=== PATIENT | male | born 1990 | race Caucasian/White ===

== ENCOUNTER 2016-09-30 22:47 | Emergency (ER) | payer OTHER ==
[~2016-09-30] VITALS: Ht 177.8 cm; Wt 70.0 kg
[~2016-09-30 22:47] MED LIST: BACL10TA PO; GABA600T PO
[2016-09-30 22:56] VITALS: BP 152/76; PULSE 96; RESP 16; TEMP 98.2; O2SAT 99
[2016-10-01 00:46] LABS: AUTOMATED NEUTROPHIL # 9.9 TH/MM3 (1.8-7.7); BASOPHIL % 0.3 % (0.0-2.0); EOSINOPHIL % 0.1 % (0.0-4.0); HEMATOCRIT 45.9 % (39.0-51.0); HEMO FLAGS DIFF FINAL; LYMPH % 8.4 % (9.0-44.0); MEAN CELL VOLUME 84.1 FL (80.0-100.0); MEAN CORPUSCULAR HEMOGLOBIN 29.9 PG (27.0-34.0); MEAN CORPUSCULAR HGB CONC 35.5 % (32.0-36.0); MONO % 4.4 % (0.0-8.0); NEUT % 86.8 % (16.0-70.0); PLATELET COUNT 198 TH/MM3 (150-450); RED BLOOD COUNT 5.46 MIL/MM3 (4.50-5.90); RED CELL DISTRIBUTION WIDTH 12.9 % (11.6-17.2); WHITE BLOOD COUNT 11.4 TH/MM3 (4.0-11.0)
[2016-10-01 00:59] LABS: AMPHETAMINE, URINE NEG (NEG); BARBITURATES, URINE NEG (NEG); COCAINE, URINE NEG (NEG)
[2016-10-01 01:05] LABS: ANION GAP 7 MEQ/L (5-15)
[2016-10-01 01:08] LABS: ALKALINE PHOSPHATASE 96 U/L (45-117); ALT (GPT) 43 U/L (12-78); AST (GOT) 17 U/L (15-37); BLOOD UREA NITROGEN 12 MG/DL (7-18); CHLORIDE 104 MEQ/L (98-107); GLOMERULAR FILTRATION RATE 81 ML/MIN (>89); POTASSIUM 3.6 MEQ/L (3.5-5.1); SODIUM (NA) 139 MEQ/L (136-145); TOTAL BILIRUBIN ADULT 1.9 MG/DL (0.2-1.0)
--- NOTE | 2016-10-01 01:18 | PD ---
HPI Chief Complaint: Psychiatric Symptoms Time Seen by Provider: 23:16 Travel History International Travel<30 days: No Contact w/Intl Traveler<30days: No Traveled to known affect area: No History of Present Illness HPI 26yo M with no PMH presents to the ED under Monsalve Act because he ingested LSD. As per monsalve act paper, his mothers stated he had suicidal ideation. Pt is denying everything. Denies any fever, chest pain, sob, n/v, abdominal pain, or fall. Pt is answering questions but obviously under the influence of drugs. PFSH Past Medical History Hx Anticoagulant Therapy: No ADHD: Yes Blood Disorders: Yes Bipolar Disorder: Yes Anxiety: Yes Depression: Yes Cancer: No Cardiovascular Problems: No Chemotherapy: No Cerebrovascular Accident: No Diabetes: No Diminished Hearing: No GERD: Yes Glaucoma: No Genitourinary: Yes (CHRONIC KIDNEY STONES) Hepatitis: No Hiatal Hernia: Yes Hypertension: No Kidney Stones: Yes Medical other: Yes (TRAUMATIC BRAIN INJURY 2004) Neurologic: Yes (TRAMATIC BRAIN INJURY AND INSOMNIA) Psychiatric: Yes Respiratory: No Immunizations Current: Yes Thyroid Disease: No Past Surgical History Abdominal Surgery: No Cardiac Surgery: No Ear Surgery: No Endocrine Surgery: No Eye Surgery: No Genitourinary Surgery: Yes (R KIDNEY LITHOTRIPSY) Gynecologic Surgery: No Hysterectomy: No Neurologic Surgery: No Oral Surgery: No Pacemaker: No Thoracic Surgery: No Other Surgery: Yes (double hernia) Social History Alcohol Use: Yes Tobacco Use: Yes Substance Use: Yes (LSD) Allergies-Medications (Allergen,Severity, Reaction): Coded Allergies: Latex (Verified Allergy, Mild, Itching, 09/30/16) Toradol (Verified Allergy, Unknown, 09/30/16) Uncoded Allergies: IV tape (Adverse Reaction, Severe, urticaria and redness, 01/09/10) Reported Meds & Prescriptions Reported Meds & Active Scripts Active No Active Prescriptions or Reported Medications Review of Systems Except as stated in HPI: all other systems reviewed are Neg Physical Exam Narrative GENERAL: 26yo M not in distress. SKIN: Focused skin assessment warm/dry. HEAD: Atraumatic. Normocephalic. EYES: Pupils equal and round. No scleral icterus. No injection or drainage. ENT: No nasal bleeding or discharge. Mucous membranes pink and moist. NECK: Trachea midline. No JVD. CARDIOVASCULAR: Regular rate and rhythm. No murmur appreciated. RESPIRATORY: No accessory muscle use. Clear to auscultation. Breath sounds equal bilaterally. GASTROINTESTINAL: Abdomen soft, non-tender, nondistended. No rebound tenderness or guarding. MUSCULOSKELETAL: No obvious deformities. No clubbing. No cyanosis. No edema. NEUROLOGICAL: Awake and alert. No obvious cranial nerve deficits. Motor grossly within normal limits. Slow speech. Data Data Last Documented VS Vital Signs Date Time Temp Pulse Resp B/P Pulse Ox O2 Delivery O2 Flow Rate FiO2 10/01/16 06:28 97.1 85 18 128/81 96 Room Air Orders Complete Blood Count With Diff (09/30/16 23:22) Comprehensive Metabolic Panel (09/30/16 23:22) Electrocardiogram (09/30/16 23:22) Drug Screen, Random Urine (09/30/16 23:22) Alcohol (Ethanol) (09/30/16 23:22) Labs Laboratory Tests Test 10/01/16 00:30 White Blood Count 11.4 TH/MM3 Red Blood Count 5.46 MIL/MM3 Hemoglobin 16.3 GM/DL Hematocrit 45.9 % Mean Corpuscular Volume 84.1 FL Mean Corpuscular Hemoglobin 29.9 PG Mean Corpuscular Hemoglobin 35.5 % Concent Red Cell Distribution Width 12.9 % Platelet Count 198 TH/MM3 Mean Platelet Volume 8.5 FL Neutrophils (%) (Auto) 86.8 % Lymphocytes (%) (Auto) 8.4 % Monocytes (%) (Auto) 4.4 % Eosinophils (%) (Auto) 0.1 % Basophils (%) (Auto) 0.3 % Neutrophils # (Auto) 9.9 TH/MM3 Lymphocytes # (Auto) 1.0 TH/MM3 Monocytes # (Auto) 0.5 TH/MM3 Eosinophils # (Auto) 0.0 TH/MM3 Basophils # (Auto) 0.0 TH/MM3 CBC Comment DIFF FINAL Differential Comment Sodium Level 139 MEQ/L Potassium Level 3.6 MEQ/L Chloride Level 104 MEQ/L Carbon Dioxide Level 28.0 MEQ/L Anion Gap 7 MEQ/L Blood Urea Nitrogen 12 MG/DL Creatinine 1.08 MG/DL Estimat Glomerular Filtration 81 ML/MIN Rate Random Glucose 107 MG/DL Calcium Level 9.5 MG/DL Total Bilirubin 1.9 MG/DL Aspartate Amino Transf 17 U/L (AST/SGOT) Alanine Aminotransferase 43 U/L (ALT/SGPT) Alkaline Phosphatase 96 U/L Total Protein 7.6 GM/DL Albumin 4.4 GM/DL Urine Opiates Screen POS Urine Barbiturates Screen NEG Urine Amphetamines Screen NEG Urine Benzodiazepines Screen NEG Urine Cocaine Screen NEG Urine Cannabinoids Screen POS Ethyl Alcohol Level LESS THAN 3 MG/DL MDM Medical Decision Making Medical Screen Exam Complete: Yes Emergency Medical Condition: Yes Differential Diagnosis Psychosis vs. drug induced psychosis Narrative Course 26yo M here under monsalve act after ingesting LSD. Pt is under influence of drugs so his denial of suicidal ideation is not reliable. Will get psych evaluation. Labs reviewed, mild leukocytosis at 11.4. CMP unremarkable. Positive opiates and cannabinoids. Alcohol negative. Pt is medically clear for psych evaluation. VS wnl. Diagnosis Primary Impression: Drug use Scripts No Active Prescriptions or Reported Meds Britta Mitchell DO Oct 01, 2016 01:18 Britta Mitchell DO Oct 01, 2016 01:18
[2016-10-01 06:28] VITALS: BP 128/81; PULSE 85; RESP 18; TEMP 97.1; O2SAT 96
--- NOTE | 2016-10-01 10:09 | MB ---
cc: NICOLE JOHN DATE OF CONSULTATION: 10/01/2016 REQUESTING PHYSICIAN Emergency Department. REASON FOR CONSULTATION Monsalve Act. HISTORY OF PRESENT ILLNESS Mr. Shabazz is a 26-year-old male with a reported history of mild depression who presents under a Monsalve Act alleging that he was behaving strangely while under the influence of LSD. Reviewing the electronic medical record, I see that the patient was seen in consultation most recently by Nurse Practitioner Kelechi in February of 2016 after allegedly threatening to kill himself. The patient was apparently generally euthymic at the time of Ms. Lorenz's evaluation and she lifted the Monsalve Act and discharged him from the ED. The patient seen and examined. Chart reviewed. Case discussed with nurse in the [facility]. There has been no evidence of any suicidality or homicidality while under observation in the [facility]. On my examination today, the patient is clinically sober. He is calm and pleasant. He says that he was at his birthday constitution party last night and his friends gave him some substance, possibly LSD , he did not know what. In any event he took it and the next thing he remembers he was walking in traffic and the next thing he remembers after that he was here. Presently he denies anymore than the most mild issues with low mood. No other depressive or hypomanic/manic symptoms. He denies any suicidal or homicidal ideation. He denies any audiovisual hallucinations and I can elicit no delusional beliefs. The remainder of the psychiatric ROS is negative. The patient is requesting discharge from the psychiatric emergency room this morning. PAST PSYCHIATRIC HISTORY The patient reports a history of mild depression. He is followed at [facility]. He was apparently recently started on a new psychotropic and he also takes gabapentin. He was admitted about a year ago he says for "saying I would kill myself for disability". He denies any history of actual suicide attempts. FAMILY HISTORY The patient denies a family history of serious mental illness or suicide. CHEMICAL DEPENDENCY HISTORY The patient admits to occasional use of alcohol and cannabis. He does believe that he consumed an hallucinogen last night but is not absolutely sure. His toxicology is positive for opiates, but the patient reports that these are prescribed to him. SOCIAL HISTORY Lives with his parents. Applying for disability. GED level of education. Denies any or legal history. Single with no children. Denies any access to guns or firearms. PAST MEDICAL HISTORY Includes a history of TBI and hernia repair. REVIEW OF SYSTEMS No reported headache, vision or hearing changes, chest pain, shortness of breath, bowel or bladder issues. No other physical complaints. PHYSICAL EXAMINATION VITAL SIGNS: Temperature is 97.1, pulse 85, respirations 18, blood pressure 128/81, pulse oximetry 96% on room air. A physical examination was completed in the emergency room by the ER staff and the patient was medically cleared. On my examination today, the patient appears to be well-nourished and well-developed and in no acute physical distress. No motor abnormalities noted. Laboratories reviewed: CBC is significant for mild leukocytosis at 11.4. CMP is unremarkable. Except for mildly decreased GFR at 81 and mild hyperglycemia. Toxicology positive for opiates and cannabinoids. MENTAL STATUS EXAMINATION The patient is in a hospital gown. He is fairly well-groomed and maintaining basic hygiene. He is awake and alert and oriented x3. No evidence of delirium. No abnormal motor movements noted. Speech is within normal limits for rate, tone and volume. Language and fund of knowledge seem average. Mood is fair to slightly down and affect is fairly full and reactive. Thought process linear. No loosening of associations. No evident delusions. Denies audiovisual hallucinations. Denies suicidal or homicidal ideation. Insight and judgment are fair. ASSESSMENT AND PLAN Hallucinogen intoxication, resolved, F16.927. This is a 26-year-old male with psychiatric history as detailed above who presents under a Monsalve Act. The patient reports possible use of hallucinogens at a constitution party with subsequent behavioral disturbance. On my examination today, the patient is calm and pleasant. There is no evidence of an unstable mood, anxiety or psychotic disorder in this patient at this time. He denies suicidal or homicidal ideation. He appears to be attending to his basic needs. Synthesizing the clinical information, I evaporator helper the patient does not meet Monsalve Act criteria at this time. I have lifted the Monsalve Act. I have counseled the patient to abstain from substances of abuse. I have encouraged a chemical dependency evaluation. Nurse will provide the appropriate referrals. The patient to followup psychiatrically with his existing provider. I have counseled the patient regarding warning signs for need to return to the psychiatric emergency room as part of a general safety plan. The patient is otherwise psychiatrically clear for discharge from the ED. Thank you very much for this consultation. Nicoel John DC/SAMMI /9:15 AM /9:41 AM BEE
--- NOTE | 2016-10-02 21:20 | EKG ---
Date Performed: 10/01/2016 Time Performed: 00:00:21 PTAGE: 26 years EKG: Sinus rhythm WITH OCCASIONAL VENTRICULAR PREMATURE COMPLEXES NONSPECIFIC T-WAVE ABNORMALITY BORDERLINE ECG PREVIOUS TRACING : 10/28/2015 05.35 DOCTOR: Elizabeth Verdin Interpretating Date/Time 10/02/2016 21:18:22
[2016-11-18] MEDS ORDERED: GABA600T PO ×2 (16:27→16:45)
[2016-11-18] MEDS ORDERED: LIDO1SOL8 SWISH-SWAL (16:45)
[2016-11-18] MEDS ORDERED: PRED20 PO (16:45)
[2016-11-18] MEDS ORDERED: AMOX875T PO (16:45)
== END 2016-10-01 11:38 | disposition home or self-care (01) ==
LOC: NEPE 22:47 → NEPJ 10-01 11:38
DX: F16.90 Hallucinogen use, unspecified, uncomplicated (principal); Z72.0 Tobacco use; R94.31 Abnormal electrocardiogram [ECG] [EKG]
CPT/HCPCS: 80053; 80307; 85025; 93005

== ENCOUNTER 2016-11-01 19:56 | Emergency (ER) | payer OTHER ==
[2016-11-01 19:57] VITALS: BP 144/82; PULSE 69; RESP 20; TEMP 97.8; O2SAT 100
--- NOTE | 2016-11-01 20:29 | PD ---
Physical Exam Time Seen by Provider: 20:28 Narrative 26 y/o male presents for evaluation of a sharp/shooting lower back pain after accidently kicking something. Vital signs reviewed. Seen at triage desk. Awaiting bed placement. Data Data Last Documented VS Vital Signs Date Time Temp Pulse Resp B/P Pulse Ox O2 Delivery O2 Flow Rate FiO2 11/01/16 19:57 97.8 69 20 144/82 100 Room Air [facility] Medical Record Reviewed: Yes Supervised Visit with MILANA: No Scripts No Active Prescriptions or Reported Meds Emile Skinner November 01, 2016 20:29
[2016-11-01] MEDS ORDERED: HYDR-3533 PO (20:49)
[2016-11-01] MEDS ORDERED: ROBA750T PO (20:49)
[2016-11-01] MEDS ORDERED: hydrOXYzine HCL 50 MG/ML VIAL IM ONE (21:00)
[2016-11-01] MEDS ORDERED: MORPHINE SULFATE 4 MG/ML INJ IM ONE (21:00)
--- NOTE | 2016-11-01 21:05 | PD ---
HPI Chief Complaint: Back/ Neck Pain or Injury Time Seen by Provider: 21:01 Travel History International Travel<30 days: No Contact w/Intl Traveler<30days: No Traveled to known affect area: No History of Present Illness HPI 26-year-old white male presents emergency Department with complaints of lower back pain. He states that he was running and tripped over a metal glenny in the yard. He states that he had fallen to the ground. He is complaining of pain in the right lower back with radiation into the right groin and right leg. States the pain is severe. He denies hitting his head. No upper back pain or neck pain. No numbness or tingling. PFSH Past Medical History Narrative Medical ADD, bipolar, PTSD, head injury, kidney stones Hx Anticoagulant Therapy: No ADHD: Yes Blood Disorders: Yes Bipolar Disorder: Yes Anxiety: Yes Depression: Yes Cancer: No Cardiovascular Problems: No Chemotherapy: No Cerebrovascular Accident: No Diabetes: No Diminished Hearing: No GERD: Yes Glaucoma: No Genitourinary: Yes (CHRONIC KIDNEY STONES) Hepatitis: No Hiatal Hernia: Yes Hypertension: No Kidney Stones: Yes Neurologic: Yes (TRAMATIC BRAIN INJURY AND INSOMNIA) Psychiatric: Yes Respiratory: No Immunizations Current: Yes Thyroid Disease: No Tetanus Vaccination: < 5 Years Past Surgical History Narrative Surgical Herniorrhaphy, kidney stone removal Abdominal Surgery: No Cardiac Surgery: No Ear Surgery: No Endocrine Surgery: No Eye Surgery: No Genitourinary Surgery: Yes (R KIDNEY LITHOTRIPSY) Gynecologic Surgery: No Hysterectomy: No Neurologic Surgery: No Oral Surgery: No Pacemaker: No Thoracic Surgery: No Other Surgery: Yes (double hernia) Social History Alcohol Use: Yes Tobacco Use: Yes Substance Use: Yes (LSD) Allergies-Medications (Allergen,Severity, Reaction): Coded Allergies: Latex (Verified Allergy, Mild, Itching, 11/01/16) Toradol (Verified Allergy, Unknown, 11/01/16) Uncoded Allergies: IV tape (Adverse Reaction, Severe, urticaria and redness, 01/09/10) Reported Meds & Prescriptions Reported Meds & Active Scripts Active Robaxin (Methocarbamol) 750 Mg Tab 1,500 Mg PO TID 10 Days Lortab (Hydrocodone-Acetaminophen) 5-325 Mg Tab 1 Tab PO Q8HR PRN Review of Systems Except as stated in HPI: all other systems reviewed are Neg Physical Exam Narrative GENERAL: Well-developed, well-nourished in no apparent distress. Nontoxic appearing. HEAD: Normocephalic, atraumatic. EYES: Pupils equal round and reactive. Extraocular motions intact. No scleral icterus. No injection or drainage. ENT: Nose clear. Throat without erythema, tonsillar hypertrophy or exudate. Uvula midline. Airway patent. NECK: Trachea midline. Supple, nontender, moves head freely. No central bony tenderness or spasm. CARDIOVASCULAR: Regular rate and rhythm without murmurs, gallops, or rubs. RESPIRATORY: Clear to auscultation. Breath sounds equal bilaterally. No wheezes , rales, or rhonchi. GASTROINTESTINAL: Abdomen soft, non-tender, nondistended. No hepato-splenomegaly , or palpable masses. No guarding. EXTREMITIES: No clubbing, cyanosis, or edema. No joint tenderness. BACK: No central bony tenderness to palpation of dorsal lumbar spine. Without deformity. No flank tenderness. Patient has right paralumbar tenderness into the right buttocks. Positive straight leg raise on the right and 90. Patient is able to heel and toe stand. No gross spasm. NEUROLOGICAL: Awake, alert and oriented x 3 .Cranial nerves grossly intact. Motor and sensory grossly within normal limits. Normal speech. Data Data Last Documented VS Vital Signs Date Time Temp Pulse Resp B/P Pulse Ox O2 Delivery O2 Flow Rate FiO2 11/01/16 19:57 97.8 69 20 144/82 100 Room Air Orders Spine, Lumbar - Ltd (Ap & Lat) (11/01/16 20:46) Morphine Inj (Morphine Inj) (11/01/16 21:00) Hydroxyzine Hcl Inj (Vistaril Inj) (11/01/16 21:00) [facility] Medical Decision Making Medical Screen Exam Complete: Yes Emergency Medical Condition: Yes Medical Record Reviewed: Yes Interpretation(s) Lumbar spine: Negative for acute fracture. No subluxation. Differential Diagnosis MDM: High Differential diagnoses: Fracture, sprain, strain, dislocation, contusion, neurovascular injury Narrative Course This is acute lumbar strain, back pain with right sciatica X-rays are negative for bony injury. Patient is given morphine 4 mg IM and Vistaril 50 mg IM. Diagnosis Primary Impression: acute lumbar strain Additional Impression: Back pain with right-sided sciatica Patient Instructions: Narcotic given in the ED, General Instructions Additional Instructions: Rest. Ice for the next 3 days followed by heat . Robaxin and Lortab. Follow-up with a primary care doctor in 3-5 days. Return to the ER for emergencies. No driving while taking medications. Med/Other Pt SpecificInfo: Prescription(s) given Scripts Methocarbamol (Robaxin)750 Mg Tab1,500 Mg PO TID 10 Days Prov:Yobani Lopez MD 11/01/16 Hydrocodone-Acetaminophen (Lortab)5-325 Mg Tab1 Tab PO Q8HR PRN (PAIN) #12 TAB Prov:Yobani Lopez MD 11/01/16 Disposition: 01 DISCHARGE HOME Condition: Stable Trip Hansen November 01, 2016 21:05
[2016-11-01 21:36] VITALS: BP 136/94; PULSE 75; RESP 18; O2SAT 99
--- NOTE | 2016-11-01 21:44 | RADRPT ---
EXAM DATE/TIME: 11/01/2016 21:04 [facility] COMPARISON: No previous studies available for comparison. INDICATIONS : Fell on back after running around and hitting right leg on object causing him to trip. MEDICAL HISTORY : None. SURGICAL HISTORY : None. ENCOUNTER: Initial ACUITY: 1 day PAIN SCORE: 0/10 LOCATION: Bilateral L-spine FINDINGS: Two view examination was performed. There are five non-rib bearing vertebral bodies. The vertebral bodies are in normal alignment without evidence of subluxation or scoliosis. The disc spaces are katlyn ntained. The pedicles are intact. Bony mineralization is normal. No fracture is identified. Hernia mesh is seen anteriorly. CONCLUSION: No acute disease. Dave Moreno MD on November 01, 2016 at 21:41 Board Certified Radiologist. This report was verified electronically.
[2016-11-18] MEDS ORDERED: GABA600T PO ×2 (16:27→16:45)
[2016-11-18] MEDS ORDERED: LIDO1SOL8 SWISH-SWAL (16:45)
[2016-11-18] MEDS ORDERED: AMOX875T PO (16:45)
[2016-11-18] MEDS ORDERED: PRED20 PO (16:45)
== END 2016-11-01 21:49 | disposition home or self-care (01) ==
LOC: NEPK 19:56
DX: S39.012A Strain of muscle, fascia and tendon of lower back, initial encounter (principal); M54.31 Sciatica, right side; W18.09XA Striking against other object with subsequent fall, initial encounter; Y92.007 Garden or yard of unspecified non-institutional (private) residence as the place of occurrence of the external cause
CPT/HCPCS: 72100; 96372; 99283; J2270; J3410

== ENCOUNTER 2016-11-17 07:59 | Emergency (ER) | payer OTHER ==
[~2016-11-17] VITALS: Ht 180.3 cm; Wt 73.0 kg
[~2016-11-17 07:59] MED LIST changes: -BACL10TA PO; -GABA600T PO; +HYDR-3533 PO; +ROBA750T PO
[2016-11-17 08:02] VITALS: BP 167/98; PULSE 114; RESP 22; TEMP 97.8; O2SAT 100
[2016-11-17 08:04] VITALS: PULSE 85; RESP 22; O2SAT 100
--- NOTE | 2016-11-17 08:24 | PD ---
HPI Chief Complaint: Fall Time Seen by Provider: 08:13 Travel History International Travel<30 days: No Contact w/Intl Traveler<30days: No Traveled to known affect area: No History of Present Illness HPI patient has pcp and is requesting referral to neurologist for further evaluation and possibly referral for surgical candidacy, this is an ongoing non acute issue, is here for pain control and really would like a referral....patient denies bladder/rectal incontinence, denies new trauma, denies any weakness or paralysis....c/o pain radiating down right leg, PFSH Past Medical History Hx Anticoagulant Therapy: No ADHD: Yes Blood Disorders: Yes Bipolar Disorder: Yes Anxiety: Yes Depression: Yes Cancer: No Cardiovascular Problems: No Chemotherapy: No Cerebrovascular Accident: No Diabetes: No Diminished Hearing: No GERD: Yes Glaucoma: No Genitourinary: Yes (CHRONIC KIDNEY STONES) Hepatitis: No Hiatal Hernia: Yes Hypertension: No Kidney Stones: Yes Neurologic: Yes (TRAMATIC BRAIN INJURY AND INSOMNIA) Psychiatric: Yes Respiratory: No Immunizations Current: Yes Thyroid Disease: No Past Surgical History Abdominal Surgery: No Cardiac Surgery: No Ear Surgery: No Endocrine Surgery: No Eye Surgery: No Genitourinary Surgery: Yes (R KIDNEY LITHOTRIPSY) Gynecologic Surgery: No Hysterectomy: No Neurologic Surgery: No Oral Surgery: No Pacemaker: No Thoracic Surgery: No Other Surgery: Yes (double hernia) Social History Alcohol Use: Yes Tobacco Use: Yes Substance Use: Yes (LSD) Allergies-Medications (Allergen,Severity, Reaction): Coded Allergies: Latex (Verified Allergy, Mild, Itching, 11/01/16) Toradol (Verified Allergy, Unknown, 11/01/16) Uncoded Allergies: IV tape (Adverse Reaction, Severe, urticaria and redness, 01/09/10) Reported Meds & Prescriptions Reported Meds & Active Scripts Active Percocet (Oxycodone-Acetaminophen) 10-325 mg Tab 1 Tab PO Q6H PRN Robaxin (Methocarbamol) 750 Mg Tab 1,500 Mg PO TID Robaxin (Methocarbamol) 750 Mg Tab 1,500 Mg PO TID 10 Days Lortab (Hydrocodone-Acetaminophen) 5-325 Mg Tab 1 Tab PO Q8HR PRN Review of Systems Except as stated in HPI: all other systems reviewed are Neg Neurologic: Positive: Other (pain shooting down rle) Physical Exam Narrative GENERAL: SKIN: Warm and dry. HEAD: Atraumatic. Normocephalic. EYES: Pupils equal and round. No scleral icterus. No injection or drainage. ENT: No nasal bleeding or discharge. Mucous membranes pink and moist. NECK: Trachea midline. No JVD. CARDIOVASCULAR: Regular rate and rhythm. RESPIRATORY: No accessory muscle use. Clear to auscultation. Breath sounds equal bilaterally. GASTROINTESTINAL: Abdomen soft, non-tender, nondistended. Hepatic and splenic margins not palpable. MUSCULOSKELETAL: Extremities without clubbing, cyanosis, or edema. No obvious deformities. NEUROLOGICAL: Awake and alert. No obvious cranial nerve deficits. Motor grossly within normal limits. Five out of 5 muscle strength in the arms and legs. Normal speech.....contralateral positive leg raise PSYCHIATRIC: Appropriate mood and affect; insight and judgment normal. Data Data Last Documented VS Vital Signs Date Time Temp Pulse Resp B/P Pulse Ox O2 Delivery O2 Flow Rate FiO2 11/17/16 08:04 85 22 100 11/17/16 08:02 97.8 167/98 Orders Dexamethasone Inj (Decadron Inj) (11/17/16 08:30) Orphenadrine Inj (Norflex Inj) (11/17/16 08:30) MDM Medical Decision Making Medical Screen Exam Complete: Yes Emergency Medical Condition: Yes Medical Record Reviewed: Yes Differential Diagnosis has h/o sciatica and this is same as before Narrative Course as above Diagnosis Primary Impression: Back pain with right-sided sciatica Referrals: Adolfo Jones PhD MD Patient Instructions: General Instructions, Sciatica (ED) Med/Other Pt SpecificInfo: Prescription(s) given Scripts Oxycodone-Acetaminophen (Percocet)10-325 mg Tab1 Tab PO Q6H PRN (PAIN) #12 TAB Ref 0 Prov:Cali Grover MD 11/17/16 Methocarbamol (Robaxin)750 Mg Tab1,500 Mg PO TID #21 TAB Ref 0 Prov:Cali Grover MD 11/17/16 Disposition: 01 DISCHARGE HOME Condition: Stable Cali Grover MD November 17, 2016 08:24
[2016-11-17] MEDS ORDERED: PERC10TA27 PO (08:30)
[2016-11-17] MEDS ORDERED: ORPHENADRINE INJ 60 MG/2 ML AMP IM ONE (08:30)
[2016-11-17] MEDS ORDERED: DEXAMETHASONE SOD PHOS 20 MG/5 ML VIAL IM ONE (08:30)
[2016-11-17] MEDS ORDERED: ROBA750T PO (08:30)
[2016-11-17] MEDS ORDERED: GABA400C5 PO (08:52)
[2016-11-18] MEDS ORDERED: GABA600T PO ×2 (16:27→16:45)
[2016-11-18] MEDS ORDERED: LIDO1SOL8 SWISH-SWAL (16:45)
[2016-11-18] MEDS ORDERED: AMOX875T PO (16:45)
[2016-11-18] MEDS ORDERED: PRED20 PO (16:45)
== END 2016-11-17 09:24 | disposition home or self-care (01) ==
LOC: NEPE 07:59
DX: M54.31 Sciatica, right side (principal)
CPT/HCPCS: 96372; 99283; J1100; J2360

== ENCOUNTER 2016-11-24 14:47 | Emergency (ER) | payer OTHER ==
[~2016-11-24 14:47] MED LIST changes: +AMOX875T PO; +GABA600T PO; +LIDO1SOL8 SWISH-SWAL; +PERC10TA27 PO; +PRED20 PO
[2016-11-24 14:49] VITALS: BP 183/100; PULSE 92; RESP 18; TEMP 97.6; O2SAT 95
--- NOTE | 2016-11-24 15:32 | PD ---
HPI Chief Complaint: Pain: Acute or Chronic Time Seen by Provider: 15:28 Travel History International Travel<30 days: No Contact w/Intl Traveler<30days: No Traveled to known affect area: No History of Present Illness HPI 26-year-old white male presents from her department with complaints of acute exacerbation of chronic back pain. The patient states that he had a fall a few weeks ago when his right leg gave out going outside when he went to smoke a cigarette. He states that he's been under the care of a primary care doctor and has not been able get referral to a neurologist or a neurosurgeon. He's been in the ER several times and has been given prescriptions for opiates reversed back pain. He states he is currently taking a muscle relaxer and gabapentin. He states that he is out of his Percocet and needs a refill. He denies any acute bowel or bladder changes. He states that the pain is moderate but can be severe in his lower back with radiation into his right groin and down his right leg. He states that this is similar pain that he's had in the past. He states he had just changes primary care doctor and cannot get an appointment until next month. He alleges that he is going to be referred to pain management as well as a neurologist for possible surgery. History Past Medical Histgory Narrative Medical Chronic back pain with sciatica, TBI, kidney stones, substance abuse, history of recent Monsalve act due to LSD ingestion. Tetanus Vaccination: > 5 Years Hx Cancer: No Hx Chemotherapy: No Past Surgical History Narrative Surgical Bilateral inguinal herniorrhaphy Social History Alcohol Use: No Tobacco Use: Yes (1 pack ever 4 days) Allergies-Medications (Allergen,Severity, Reaction): Coded Allergies: Latex (Verified Allergy, Mild, Itching, 11/01/16) Toradol (Verified Allergy, Unknown, 11/01/16) Uncoded Allergies: IV tape (Adverse Reaction, Severe, urticaria and redness, 01/09/10) Reported Meds & Prescriptions Reported Meds & Active Scripts Active Gabapentin 600 Mg Tab 600 Mg PO TID Robaxin (Methocarbamol) 750 Mg Tab 1,500 Mg PO TID Review of Systems Except as stated in HPI: all other systems reviewed are Neg Physical Exam Narrative GENERAL: This is a well-nourished, well-developed patient, in no apparent distress. SKIN: No rashes, ecchymoses or lesions. Warm and dry. HEAD: Atraumatic. Normocephalic. EYES: PERRL, EOMI, no discharge or injection. No scleral icterus. EARS: Clear NOSE: Nasal turbinates appear normal. THROAT: Mucosa pink and moist. Airway patent. NECK: Trachea midline. supple, moves head freely. LUNGS: Clear to auscultation. CV: Regular in rhythm. ABDOMEN: Soft nontender. EXT: No clubbing cyanosis or edema. Back: There is no central bony tenderness to palpation of the dorsal lumbar spine. Patient complains of diffuse lower lumbar tenderness worse on the right than left. He is able to sit up in bed at 90. No saddle anesthesia. Patient does report hypoesthesia to the right lateral thigh down into the knee. He has good distal pulses. No weakness. No gross spasm. Data Data Last Documented VS Vital Signs Date Time Temp Pulse Resp B/P Pulse Ox O2 Delivery O2 Flow Rate FiO2 11/24/16 14:49 97.6 92 18 183/100 95 Room Air MDM Medical Screen Exam Complete: Yes Emergency Medical Condition: Yes Differential Diagnosis MDM: High Differential diagnoses: AAA,Fracture, sprain, strain, HNP, nerve or vascular injury, epidural abscess, pilonidal cyst, pyelonephritis, UTI, nephrolithiasis, ureterolithiasis Narrative Course A medical screening exam was performed: At the time of evaluation the presenting medical condition was determined not to be of an emergent nature. The patient was given the option of receiving additional care, but declined. Patient was given options for additional community resources from which to obtain care. The Patient Has Been advised to seek medical attention for their presenting complaint. The patient has been advised to return to the ER at any time if an emergent condition develops. The patient is opted to stay. I reviewed his he force. He has had multiple visits to emergency providers in the last several weeks to months for opiate refills. The patient is informed that we do not refill opiates through the ER. The patient is given a prescription for prednisone and advised to continue follow- up with a primary care doctor and/or a neurologist. Chronic back pain with sciatica Primary Impression: Chronic low back pain with sciatica Qualified Code: M54.41 - Chronic right-sided low back pain with right-sided sciatica Patient Instructions: General Instructions Additional Instructions: Rest. Ice or heat whichever seems to improve your pain. Continue your muscle relaxer and gabapentin. Prednisone and lidocaine patches. Follow-up with a primary care doctor or a neurologist of your choice. Consider pain management. No refill of opiates for chronic back pain to the ER. Return to the ER for emergencies. Med/Other Pt SpecificInfo: Prescription(s) given Scripts Lidocaine Patch 12 HR 5 % Patch1 Patch TOPICAL DAILY #10 BOX Ref 0 Remove patch after 12 hours Prov:Zion Bennett MD 11/24/16 Methylprednisolone Dosepak (Medrol Dosepak)4 Mg Dspk4 Mg PO DIRECTED #1 DSPK Ref 0 Per Pharmacist direction Prov:Zion Bennett MD 11/24/16 Disposition: 01 DISCHARGE HOME Condition: Stable Trip Hansen November 24, 2016 15:31
[2016-11-24] MEDS ORDERED: MEDR4PAK PO (15:39)
[2016-11-24] MEDS ORDERED: LIDO1PAD52 TOPICAL (15:39)
== END 2016-11-24 15:57 | disposition home or self-care (01) ==
LOC: NEPK 14:47
DX: M54.41 Lumbago with sciatica, right side (principal); Z72.0 Tobacco use; Z87.39 Personal history of other diseases of the musculoskeletal system and connective tissue; Z87.442 Personal history of urinary calculi
CPT/HCPCS: 99283